=== PATIENT | female | born 1945 | race Caucasian/White ===

== ENCOUNTER → 2020-03-09 | Outpatient (CLI) | payer MEDICARE ==
[~2020-03-09] MED LIST: ABAC300; Anastrozole1 GM PO; Armour Thyroid15 MG PO; DHA100 MG; FISH1000; GENT.3OPSA OS; Lugol's Strong I1 ML; MAGNESIUM CITR100 MG; Melatonin5 M1; RXHYDACE PO
[2020-03-15 14:28] LABS: Stool Occult Bld Immuno 1 Negative (NEGATIVE); Stool Occult Bld Immuno 2 Negative (NEGATIVE)
== END ==
LOC: LAB SHORT 12:23 → LAB 12:23
PROVIDERS: Internal Medicine Gastroenterology
DX: Z12.11 Encounter for screening for malignant neoplasm of colon (principal)
CPT/HCPCS: G0328

== ENCOUNTER 2022-04-05 14:52 | Emergency (ER) | payer MEDICARE, OTHER ==
[~2022-04-05] VITALS: Ht 144.8 cm; Wt 71.7 kg
== END 2022-04-05 18:29 | disposition home or self-care (01) ==
LOC: ER 14:52
DX: S80.12XA Contusion of left lower leg, initial encounter (principal); X58.XXXA Exposure to other specified factors, initial encounter; Z79.899 Other long term (current) drug therapy; Z96.641 Presence of right artificial hip joint; Z88.5 Allergy status to narcotic agent; Z91.040 Latex allergy status; Z91.09 Other allergy status, other than to drugs and biological substances
CPT/HCPCS: 93971

== ENCOUNTER 2025-05-16 07:42 | Day surgery (SDC) | payer MEDICARE, OTHER ==
[~2025-05-16] VITALS: Ht 144.8 cm; Wt 70.9 kg
[~2025-05-16 07:42] MED LIST changes: +NS 500 ML IV ONE
[2025-05-16] MEDS ORDERED: FentaNYL Citrate 50 MCG/ML 2 ML Injection ONE (07:58)
--- NOTE | 2025-05-16 08:00 | NUR ---
05/16/25 0800 [place] RAMIRE[place] PUT IV IN L AC
[2025-05-16] MEDS ORDERED: NP THYROID (08:05)
[2025-05-16] MEDS ORDERED: XARELTO20 MG PO (08:05)
[2025-05-16] MEDS ORDERED: CeFAZolin Sodium 2,000 MG VIAL ONE (08:17)
[2025-05-16] MEDS ORDERED: NS 500 ML IV ONE (08:30)
--- NOTE | 2025-05-16 09:00 | NUR ---
05/16/25 0900 Madeline Pacheco PT. DENIES ANY PAIN. LEFT FINGERS WITH GOOD CAP REFILL, PT. ABLE TO FEEL TOUCH TO ALL FINGERS. PT. EATING STRING CHEESE & DRINKING COFFEE. AT HER SIDE. CALL LIGHT WITHIN REACH.
[2025-05-16 09:46] VITALS: BP 146/76
== END 2025-05-16 09:35 | disposition home or self-care (01) ==
LOC: ORSCSDS 07:42
PROVIDERS: Orthopaedic Surgery
PROC: 0JBH0ZX Excision of Left Lower Arm Subcutaneous Tissue and Fascia, Open Approach, Diagnostic (ICD-10-PCS; principal; 2025-05-16 08:30)
PROC: 01N54ZZ Release Median Nerve, Percutaneous Endoscopic Approach (ICD-10-PCS; principal; 2025-05-16 08:30)
DX: G56.03 Carpal tunnel syndrome, bilateral upper limbs (principal); G14 Postpolio syndrome; Z85.3 Personal history of malignant neoplasm of breast; G47.33 Obstructive sleep apnea (adult) (pediatric); I48.91 Unspecified atrial fibrillation; Z79.899 Other long term (current) drug therapy
CPT/HCPCS: 88304; 88313; J0690; J3010; J7040